=== PATIENT | female | born 1975 | race Caucasian/White ===

== ENCOUNTER 2022-03-14 06:58 | Outpatient (CLI) | payer BC | END 2022-03-14 06:59 | disposition home or self-care (01) | LOC: CSHLAB 06:58 | PROVIDERS: ATTEND Obstetrics & Gynecology | DX: Z01.812 Encounter for preprocedural laboratory examination (principal); Z20.822 Contact with and (suspected) exposure to COVID-19 | CPT/HCPCS: 84703; 85027; 86850; 86900; 86901; 87811 ==

== ENCOUNTER 2022-03-19 05:49 | Day surgery (SDC) | payer BC ==
[2022-03-14 07:52] LABS: Hemoglobin 13.8 g/dL (12.0-15.5); Mean Corpuscular HGB CONC 34.2 g/dL (32.0-36.0); Mean Corpuscular Hemoglobin 32.6 pg (27.0-33.0); Mean Corpuscular Volume 95.3 fl (81.6-98.3); Mean Platelet Volume 8.7 fl (7.4-10.4); Platelet Count 236 10x3/uL (150-450); RBC Distribution Width 14.1 % (11.5-14.5); Red Blood Cell (RBC) Count 4.23 10x6/uL (3.90-5.03); White Blood Cell (WBC) Count 4.5 10x3/uL (3.5-10.5)
[2022-03-14 08:11] LABS: BHCG - Serum Negative (NEGATIVE); Pregs Control Background? CLEAR/WHITE (CLR/WHITE); Pregs Control Bar Appear? YES (CONTROL BAR)
[2022-03-14 17:04] VITALS: BMI 34.7
[2022-03-19] MEDS ORDERED: Gabapentin 300 MG CAP ONE (06:23)
[2022-03-19] MEDS ORDERED: Famotidine/PF 20 mg/2ml Vial ONE (06:24)
[2022-03-19] MEDS ORDERED: CeleCOXIB 100 MG CAP ONE (06:24)
[2022-03-19] MEDS ORDERED: Lidocaine 4% Topical Sol 50 ML BOT ONE (06:44)
[2022-03-19] MEDS ORDERED: Fentanyl 250 MCG/5 ML VIAL ONE (06:51)
[2022-03-19] MEDS ORDERED: PROPOFOL 20 ML ONE (06:51)
[2022-03-19] MEDS ORDERED: Lidocaine 1% PF 5 ML VIAL ONE (06:52)
[2022-03-19] MEDS ORDERED: Ondansetron PF 4 MG/2 ML Vial ONE (06:52)
[2022-03-19] MEDS ORDERED: Midazolam HCl 2 mg/2 ml Vial ONE (06:52)
[2022-03-19] MEDS ORDERED: Dexamethasone 20 MG/5 ML VIAL ONE (06:52)
[2022-03-19] MEDS ORDERED: Glycopyrrolate 0.2 MG/ML 5 ML SYRINGE ONE (06:52)
[2022-03-19] MEDS ORDERED: Rocuronium Bromide 10 MG/ML (10ML VIAL) ONE (06:52)
[2022-03-19] MEDS ORDERED: Ketorolac Tromethamine 30 MG/ML VIAL ONE (06:52)
[2022-03-19] MEDS ORDERED: Bupivacaine PF 0.5% 30 ML VIAL ONE (06:53)
[2022-03-19] MEDS ORDERED: EPINEPHrine 1 MG/ML AMP ONE (06:53)
[2022-03-19] MEDS ORDERED: CEFAZOLIN 2 GM VIAL ONE (07:18)
[2022-03-19] MEDS ORDERED: ePHEDrine Sulfate 50 MG/10 ML VIAL ONE (07:47)
[2022-03-19] MEDS ORDERED: Fentanyl 100 MCG/2 ML VIAL ONE (09:29)
[2022-03-19] MEDS ORDERED: HYDROcodone/Acetaminophen 5/325 mg Tablet ONE (11:06)
== END 2022-03-19 12:40 | disposition home or self-care (01) ==
LOC: CSHSDC 05:49
PROVIDERS: ATTEND Obstetrics & Gynecology
PROC: 0UT94ZZ Resection of Uterus, Percutaneous Endoscopic Approach (ICD-10-PCS; principal; 2022-03-19)
PROC: 0UT74ZZ Resection of Bilateral Fallopian Tubes, Percutaneous Endoscopic Approach (ICD-10-PCS; principal; 2022-03-19)
DX: D25.9 Leiomyoma of uterus, unspecified (principal); N80.0 Endometriosis of uterus; K66.0 Peritoneal adhesions (postprocedural) (postinfection); N92.0 Excessive and frequent menstruation with regular cycle; N94.6 Dysmenorrhea, unspecified; Z20.822 Contact with and (suspected) exposure to COVID-19
CPT/HCPCS: 84703; 85027; 86850; 86900; 86901; 87811; 88307; J0171; J0690; J1100; J1885; J2250; J2405; J2704; J3010; S0020; S0028